=== PATIENT | male | born 1960 | race American Indian/Alaskan Native ===

== ENCOUNTER 2017-02-26 00:15 | Emergency (ER) | payer MEDICAID, OTHER ==
[2017-02-26 00:52] VITALS: BMI 36.2
--- NOTE | 2017-02-26 01:14 | ED PDOC ---
Arrival/HPI - General Chief Complaint: Headache Time Seen by Provider: 02/26/17 00:42 Historian: Patient - History of Present Illness Narrative History of Present Illness (Text): 02/26/17 01:13 A 57 year old male, whose past medical history includes hypertension, presents to the emergency department complaining of headache for the past three days. Notes headache was gradual and constant from front to back, radiating down to neck. Patient reports left jaw pain today that lasted for five minutes. Patient hasn't taken hypertension medications for the past week. Notes similar symptoms in the past when blood pressure was elevated. Reports paresthesia in bilateral fingers for the past week but denies any shortness of breath, chest pain or any other complaints at this time. Denies any drug or alcohol use. Medications: Losartan and Amlodipine Time/Duration: Other (3 days) Symptom Onset: Sudden Symptom Course: Unchanged Activities at Onset: Rest Context: Home Past Medical History - Provider Review Nursing Documentation Reviewed: Yes - Tetanus Immunization Tetanus Immunization: >10 years Ago - Cardiac Hx Cardiac Disorders: Yes Hx Hypertension: Yes - Pulmonary Hx Respiratory Disorders: No - Neurological Hx Neurological Disorder: No - HEENT Hx HEENT Disorder: No - Renal Hx Renal Disorder: No - Endocrine/Metabolic Hx Endocrine Disorders: No - Hematological/Oncological Hx Blood Disorders: No - Integumentary Hx Dermatological Disorder: No - Musculoskeletal/Rheumatological Hx Musculoskeletal Disorders: No - Gastrointestinal Hx Gastrointestinal Disorders: No - Genitourinary/Gynecological Hx Genitourinary Disorders: No - Psychiatric Hx Psychophysiologic Disorder: No Hx Substance Use: No - Past Surgical History Past Surgical History: No Previous - Anesthesia Hx Anesthesia: No - Suicidal Assessment Feels Threatened In Home Enviroment: No Family/Social History - Physician Review Nursing Documentation Reviewed: Yes Family/Social History: No Known Family HX Smoking Status: Never Smoked Hx Alcohol Use: No Hx Substance Use: No Hx Substance Use Treatment: No Allergies/Home Meds Allergies/Adverse Reactions: Allergies No Known Allergies Allergy (Verified 02/26/17 00:52) Home Medications: Home Meds Medication Instructions Recorded Confirmed Losartan [Cozaar] 1 tab PO DAILY 08/19/16 02/26/17 amLODIPine [Norvasc] 1 tab PO DAILY 08/19/16 02/26/17 Review of Systems - Physician Review All systems were reviewed & negative as marked: Yes - Review of Systems Respiratory: absent: SOB Cardiovascular: absent: Chest Pain Musculoskeletal: Neck Pain, Other (left jaw pain) Neurological: Headache Physical Exam Vital Signs Reviewed: Yes Vital Signs Temp Pulse Resp BP Pulse Ox 02/26/17 04:39 98.7 F 84 19 123/83 96 02/26/17 03:05 18 131/93 H 95 02/26/17 02:44 83 151/105 H 02/26/17 01:28 154/114 H 02/26/17 00:58 98.4 F 72 20 154/114 H 94 L Temperature: Afebrile Blood Pressure: Hypertensive Pulse: Regular Respiratory Rate: Normal Appearance: Positive for: Well-Appearing, Non-Toxic, Comfortable Pain Distress: None Mental Status: Positive for: Alert and Oriented X 3 - Systems Exam Head: Present: Atraumatic, Normocephalic Pupils: Present: PERRL Extroacular Muscles: Present: EOMI Conjunctiva: Present: Normal Mouth: Present: Moist Mucous Membranes Neck: Present: Normal Range of Motion Respiratory/Chest: Present: Clear to Auscultation, Good Air Exchange. No: Respiratory Distress, Accessory Muscle Use Cardiovascular: Present: Regular Rate and Rhythm, Normal S1, S2. No: Murmurs Abdomen: Present: Normal Bowel Sounds. No: Tenderness, Distention, Peritoneal Signs Back: Present: Normal Inspection Upper Extremity: Present: Normal Inspection. No: Cyanosis, Edema Lower Extremity: Present: Normal Inspection. No: Edema Neurological: Present: GCS=15, CN II-XII Intact, Speech Normal, Motor Func Grossly Intact, Normal Sensory Function, Normal Cerebellar Funct, Gait Normal, Other (no focal deficits) Skin: Present: Warm, Dry, Normal Color. No: Rashes Psychiatric: Present: Alert, Oriented x 3, Normal Insight, Normal Concentration Medical Decision Making ED Course and Treatment: 02/26/17 01:34 EKG: Ordered, reviewed, and independently interpreted the EKG. Rate : 62 BPM Rhythm : NSR Interpretation : Nonspecific T wave abnormality Comparison : No previous EKG for comparison. CT Head Without Intravenous Contrast FINDINGS: Brain: Mild atrophy. No intracranial hemorrhage. No mass. No definite edema. Ventricles: No hydrocephalus. Bones/joints: No acute fracture. Soft tissues: Unremarkable. Sinuses: LEFT maxillary retention cyst. Scattered minimal mucosal thickening. Mastoid air cells: No mastoid effusion. Orbits: Unremarkable as visualized. IMPRESSION: 1. No acute intracranial abnormality. 2. Incidental/non-acute findings are described above. Dictated and Authenticated by: Andrew Bland MD 02/26/2017 3:12 AM Eastern Time ([place] & [place]) 02/26/17 04:25 Patient is resting comfortably and is in no acute distress. Patient feels better. Blood pressure improved. I have discussed the results and plan with the patient, who expresses understanding. Patient in agreement with plan to be discharged home. Patient is stable for discharge. Patient was instructed to follow up with physician or return if symptoms worsen or new concerning symptoms arise. - Lab Interpretations Lab Results: 02/26/17 01:40 02/26/17 01:40 Lab Results 02/26/17 01:40: Sodium 139, Potassium 3.6, Chloride 100, Carbon Dioxide 30, Anion Gap 13, BUN 13, Creatinine 1.2, Est GFR ( Amer) > 60, Est GFR (Non- Af Amer) > 60, Random Glucose 180 H, Calcium 9.6, Total Bilirubin 0.5, AST 24, ALT 25, Alkaline Phosphatase 88, Troponin I < 0.01, Total Protein 6.9, Albumin 3.8, Globulin 3.1, Albumin/Globulin Ratio 1.2 02/26/17 01:40: WBC 6.5, RBC 4.35, Hgb 13.1 L, Hct 37.3 L, MCV 85.7, MCH 30.1, MCHC 35.1, RDW 12.9, Plt Count 231, MPV 10.4, Gran % 54.1, Lymph % (Auto) 34.5, [place] % (Auto) 7.9 H, Eos % (Auto) 3.2, Baso % (Auto) 0.3, Gran # 3.50, Lymph # 2.2, [place] # 0.5, Eos # 0.2, Baso # 0.02 I have reviewed the lab results: Yes - RAD Interpretation Radiology Orders: 02/26/17 01:10 HEAD W/O CONTRAST [CT] Stat - EKG Interpretation Interpreted by ED Physician: Yes Type: 12 lead EKG - Medication Orders Current Medication Orders: Discontinued Medications Acetaminophen (Tylenol 325mg Tab) 975 mg PO STAT STA Stop: 02/26/17 02:25 Last Admin: 02/26/17 02:43 Dose: 975 mg Amlodipine Besylate (Norvasc) 10 mg PO STAT STA Stop: 02/26/17 01:11 Last Admin: 02/26/17 01:28 Dose: 10 mg Diphenhydramine HCl (Benadryl) 25 mg IVP STAT STA Stop: 02/26/17 03:29 Last Admin: 02/26/17 03:47 Dose: Not Given Non-Admin Reason: Patient Refused Labetalol HCl (Trandate) 10 mg IVP STAT STA Stop: 02/26/17 02:25 Last Admin: 02/26/17 02:44 Dose: 10 mg Losartan Potassium (Cozaar) 100 mg PO STAT STA Stop: 02/26/17 01:14 Last Admin: 02/26/17 01:28 Dose: 100 mg Metoclopramide HCl (Reglan) 10 mg IVP STAT STA Stop: 02/26/17 03:29 Last Admin: 02/26/17 03:47 Dose: Not Given Non-Admin Reason: Patient Refused - Scribe Statement The provider has reviewed the documentation as recorded by the Jacinta Max Provider Scribe Attestation: All medical record entries made by the Justinibmoreno were at my direction and personally dictated by me. I have reviewed the chart and agree that the record accurately reflects my personal performance of the history, physical exam, medical decision making, and the department course for this patient. I have also personally directed, reviewed, and agree with the discharge instructions and disposition. Disposition/Present on Arrival - Present on Arrival Any Indicators Present on Arrival: No History of DVT/PE: No History of Uncontrolled Diabetes: No Urinary Catheter: No History of Decub. Ulcer: No History Surgical Site Infection Following: None - Disposition Have Diagnosis and Disposition been Completed?: Yes Diagnosis: High blood pressure Disposition: HOME/ ROUTINE Disposition Time: 04:27 Condition: IMPROVED Discharge Instructions (ExitCare): Chronic Hypertension (ED) Additional Instructions: Please follow up with your doctor in the next week. Return to the ER for any worsening symptoms or for any other concerns. Prescriptions: amLODIPine [Norvasc] 10 mg PO DAILY #30 tab Losartan [Cozaar] 100 mg PO DAILY #30 tab Forms: [employer] (French)
[2017-02-26 01:58] LABS: ALB/GLOB RATIO 1.2 (1.1-1.8); ALBUMIN 3.8 g/dL (3.0-4.8); ALT/SGPT 25 U/L (7-56); AST/SGOT 24 U/L (15-59); BLOOD UREA NITROGEN 13 mg/dL (7-21); CALCIUM 9.6 mg/dL (8.4-10.5); GFR AFRICAN-AMERICAN > 60; GFR NON-AFRICAN AMERICAN > 60
[2017-02-26 02:10] LABS: TROPONIN I < 0.01 ng/mL
[2017-02-26] MEDS ORDERED: Labetalol 5 mg/ml Inj 20ML IVP STA ×2 (02:24→02:56)
[2017-02-26 02:28] LABS: BASO # 0.02 K/mm3 (0.0-2.0); BASO % 0.3 % (0.0-3.0); EOS # 0.2 (0.0-0.7); EOS % 3.2 % (1.5-5.0); GRAN % 54.1 % (50.0-68.0); HEMOGLOBIN 13.1 gm/dL (14.0-18.0); LYMPH # 2.2 (1.2-3.4); LYMPH % 34.5 % (22.0-35.0); MEAN CELL VOLUME 85.7 fL (80.0-105.0); MEAN CORPUSCULAR HEMOGLOBIN 30.1 pg (25.0-35.0); MEAN CORPUSCULAR HGB CONC 35.1 g/dl (31.0-37.0); MEAN PLATELET VOLUME 10.4 fl (7.0-11.0); MONO # 0.5 (0.1-0.6); MONO % 7.9 % (1.0-6.0); PLATELET COUNT 231 10^3/uL (120.0-450.0); RBC 4.35 10^6/uL (3.5-6.1); RED CELL DISTRIBUTION WIDTH 12.9 % (11.5-14.5); WHITE BLOOD COUNT 6.5 10^3/ul (4.5-11.0)
--- NOTE | 2017-02-26 03:12 | CT ---
EXAM: CT Head Without Intravenous Contrast CLINICAL HISTORY: 57 years old, male; Pain; Headache TECHNIQUE: Axial computed tomography images of the head/brain without intravenous contrast. This CT exam was performed using one or more of the following dose reduction techniques: automated exposure control, adjustment of the mA and/or kV according to patient size, and/or use of iterative reconstruction technique. COMPARISON: No relevant prior studies available. FINDINGS: Brain: Mild atrophy. No intracranial hemorrhage. No mass. No definite edema. Ventricles: No hydrocephalus. Bones/joints: No acute fracture. Soft tissues: Unremarkable. Sinuses: LEFT maxillary retention cyst. Scattered minimal mucosal thickening. Mastoid air cells: No mastoid effusion. Orbits: Unremarkable as visualized. IMPRESSION: 1. No acute intracranial abnormality. 2. Incidental/non-acute findings are described above.
[2017-02-26] MEDS ORDERED: DiphenhydrAMINE 50 mg/ml Inj IVP STA (03:28)
[2017-02-26 04:39] VITALS: BP 123/83; PULSE 84; RESP 19; TEMP 98.7; O2SAT 96
--- NOTE | 2017-02-26 11:08 | CARD ---
APPROVED REPORT EKG Measurement Heart [id number] <Conclusion> Normal sinus rhythm Nonspecific T wave abnormality Abnormal ECG
== END 2017-02-26 04:47 | disposition home or self-care (01) ==
LOC: ED 00:15
DX: I10 Essential (primary) hypertension (principal)

== ENCOUNTER 2018-05-06 03:37 | Emergency (ER) | payer MEDICAID, OTHER ==
[2018-05-06 03:57] VITALS: BMI 33.0
[2018-05-06 03:59] VITALS: O2SAT 100
[2018-05-06] MEDS ORDERED: Sodium Chloride 0.9% 1,000 ML IV STA (04:04)
--- NOTE | 2018-05-06 04:09 | ED PDOC ---
Arrival/HPI - General Chief Complaint: Male Genitourinary Time Seen by Provider: 05/06/18 03:40 Historian: Patient - History of Present Illness Narrative History of Present Illness (Text): 05/06/18 04:04 58 year old male, whose past medical history includes hypertension and kidney stones, presents to the emergency department complaining of right flank pain that radiates down to the scrotum. Patient reports the pain is a constant pain with a throbbing sensation. Patient reports nausea, but denies any fever, chills, chest pain, shortness of breath, vomiting, diarrhea, urinary symptoms, neck pain, headache, dizziness, or any other complaints. Symptom Course: Unchanged Quality: Throbbing Activities at Onset: Light Context: Home Past Medical History - Provider Review Nursing Documentation Reviewed: Yes - Tetanus Immunization Tetanus Immunization: >10 years Ago - Cardiac Hx Cardiac Disorders: Yes Hx Hypertension: Yes - Pulmonary Hx Respiratory Disorders: No - Neurological Hx Neurological Disorder: No - HEENT Hx HEENT Disorder: No - Renal Hx Renal Disorder: No - Endocrine/Metabolic Hx Endocrine Disorders: No - Hematological/Oncological Hx Blood Disorders: No - Integumentary Hx Dermatological Disorder: No - Musculoskeletal/Rheumatological Hx Musculoskeletal Disorders: No - Gastrointestinal Hx Gastrointestinal Disorders: No - Genitourinary/Gynecological Hx Genitourinary Disorders: No - Psychiatric Hx Psychophysiologic Disorder: No Hx Substance Use: No - Past Surgical History Past Surgical History: No Previous - Anesthesia Hx Anesthesia: No - Suicidal Assessment Feels Threatened In Home Enviroment: No Family/Social History - Physician Review Nursing Documentation Reviewed: Yes Family/Social History: No Known Family HX Smoking Status: Never Smoked Hx Alcohol Use: Yes Frequency of alcohol use: Socially Hx Substance Use: No Hx Substance Use Treatment: No Allergies/Home Meds Allergies/Adverse Reactions: Allergies No Known Allergies Allergy (Verified 02/26/17 00:52) Review of Systems - Physician Review All systems were reviewed & negative as marked: Yes - Review of Systems Constitutional: absent: Fevers, Other (Chills) Respiratory: absent: SOB Cardiovascular: absent: Chest Pain Gastrointestinal: Nausea. absent: Diarrhea, Vomiting Musculoskeletal: Back Pain (right flank pain). absent: Neck Pain Neurological: absent: Headache, Dizziness Physical Exam Vital Signs Reviewed: Yes Vital Signs Temp Pulse Resp BP Pulse Ox 05/06/18 03:57 99.2 F 69 17 160/98 H 100 Temperature: Afebrile Blood Pressure: Hypertensive Pulse: Regular Respiratory Rate: Normal Appearance: Positive for: Well-Appearing, Non-Toxic, Comfortable Pain Distress: None Mental Status: Positive for: Alert and Oriented X 3 - Systems Exam Head: Present: Atraumatic, Normocephalic Pupils: Present: PERRL Extroacular Muscles: Present: EOMI Conjunctiva: Present: Normal Mouth: Present: Moist Mucous Membranes Neck: Present: Normal Range of Motion Respiratory/Chest: Present: Clear to Auscultation, Good Air Exchange. No: Respiratory Distress, Accessory Muscle Use Cardiovascular: Present: Regular Rate and Rhythm, Normal S1, S2. No: Murmurs Abdomen: Present: Tenderness (right sided flank pain). No: Distention, Peritoneal Signs Genitourinary Male: Present: Testicle Tenderness Back: Present: Normal Inspection Upper Extremity: Present: Normal Inspection. No: Cyanosis, Edema Lower Extremity: Present: Normal Inspection. No: Edema Neurological: Present: GCS=15, CN II-XII Intact, Speech Normal Skin: Present: Warm, Dry, Normal Color. No: Rashes Psychiatric: Present: Alert, Oriented x 3, Normal Insight, Normal Concentration Medical Decision Making ED Course and Treatment: 05/06/18 04:04 Impression: 58 year old male presents complaining of right flank pain that radiates to the scrotum. ro rental colic pyelo torsion Plan: -- CT Abd & Pelvis -- Labs -- IV Fluids, Toradol, Zofran Inj -- US Testes Duplex Complete -- Urinalysis -- Reassess and disposition Prior Visits: Notes and results from previous visits were reviewed. Progress Notes: EXAM: US Scrotum. Electronically signed on May 06, 2018 5:45:49 AM EDT by: Jamal Sauceda M.D., MPRESSION: Two left testicular cysts are noted measuring 4 and 3 mm. No acute abnormality evident on sonographic examination of the scrotum. 05/06/18 06:[address] neg for acute pathology. notified of cysts. no e/o of torsion pain improved. advise outpt fu. - Lab Interpretations I have reviewed the lab results: Yes - Scribe Statement The provider has reviewed the documentation as recorded by the Jacinta Barnett Provider Scribe Attestation: All medical record entries made by the Scribe were at my direction and personally dictated by me. I have reviewed the chart and agree that the record accurately reflects my personal performance of the history, physical exam, medical decision making, and the department course for this patient. I have also personally directed, reviewed, and agree with the discharge instructions and disposition. Disposition/Present on Arrival - Present on Arrival Any Indicators Present on Arrival: No History of DVT/PE: No History of Uncontrolled Diabetes: No Urinary Catheter: No History of Decub. Ulcer: No History Surgical Site Infection Following: None - Disposition Have Diagnosis and Disposition been Completed?: Yes Diagnosis: Flank pain, Testicular pain, Kidney cysts Disposition: HOME/ ROUTINE Disposition Time: 06:30 Condition: STABLE Discharge Instructions (ExitCare): Low Back Pain in Adults Additional Instructions: please follow up with your doctor and specialists please discuss all you results with your doctor and specialists. return to any er with worsening symptoms or concerns. Prescriptions: RX: Naproxen 500 mg PO BID PRN #20 tablet PRN Reason: Pain, Mild (1-3) Referrals: [facility] [Outside] - Follow up with primary [facility] [place]] - Follow up with primary Nelson Harris MD [Staff Provider] - Follow up with primary Kennedy Schmidt MD [Staff Provider] - Follow up with primary Forms: [employer] (Panamanian)
[2018-05-06 04:33] LABS: BASO # 0.01 K/mm3 (0.0-2.0); BASO % 0.1 % (0.0-3.0); EOS # 0.2 (0.0-0.7); EOS % 1.7 % (1.5-5.0); GRAN # 6.2 (1.4-6.5); GRAN % 68.4 % (50.0-68.0); HEMOGLOBIN 13.9 g/dL (14.0-18.0); LYMPH % 22.3 % (22.0-35.0); MEAN CELL VOLUME 85.7 fl (80.0-105.0); MEAN CORPUSCULAR HEMOGLOBIN 30.2 pg (25.0-35.0); MEAN CORPUSCULAR HGB CONC 35.2 g/dl (31.0-37.0); MEAN PLATELET VOLUME 10.3 fl (7.0-11.0); MONO # 0.7 (0.1-0.6); MONO % 7.5 % (1.0-6.0); RBC 4.61 10^6/uL (3.5-6.1); RED CELL DISTRIBUTION WIDTH 13.1 % (11.5-14.5); WHITE BLOOD COUNT 9.1 10^3/ul (4.5-11.0)
[2018-05-06 04:38] LABS: INR 0.88; PARTIAL THROMBOPLASTIN TIME 29.1 Seconds (25.1-36.5)
[2018-05-06 04:43] LABS: ALB/GLOB RATIO 1.3 (1.1-1.8); ALBUMIN 4.3 g/dL (3.0-4.8); ALT/SGPT 21 U/L (7-56); AST/SGOT 21 U/L (17-59); BLOOD UREA NITROGEN 14 mg/dL (7-21); CALCIUM 9.6 mg/dL (8.4-10.5); GFR NON-AFRICAN AMERICAN > 60; LIPASE 37 U/L (23-300)
[2018-05-06 04:57] LABS: URINE BILIRUBIN NEGATIVE (NEGATIVE); URINE BLOOD NEGATIVE (NEGATIVE); URINE GLUCOSE (UA) 250 mg/dL (NEGATIVE); URINE LEUKOCYTE ESTERASE NEGATIVE Leu/uL (NEGATIVE); URINE PROTEIN TRACE mg/dL (<30 mg/dL); URINE UROBILINOGEN 0.2 E.U./dL (<1 E.U./dL)
[2018-05-06 05:03] LABS: URINE APPEARANCE SL CLOUDY (CLEAR); URINE COLOR LIGHT YELLOW (YELLOW)
[2018-05-06 05:17] LABS: URINE RBC 0 - 2 /hpf (0-2)
[2018-05-06 05:18] LABS: URINE BACTERIA MANY (NEG); URINE WBC NEGATIVE /hpf (0-6)
[2018-05-06 06:40] VITALS: BP 137/82; PULSE 65; RESP 16; TEMP 98.5
--- NOTE | 2018-05-06 10:55 | CT ---
Date of service: 05/06/2018 PROCEDURE: CT Abdomen and Pelvis without intravenous contrast HISTORY: right sided flank pain COMPARISON: 10/31/2014 TECHNIQUE: Without contrast.. Contrast dose: 0 Radiation dose: Total exam DLP = 1098.39 mGy-cm. This CT exam was performed using one or more of the following dose reduction techniques: Automated exposure control, adjustment of the mA and/or kV according to patient size, and/or use of iterative reconstruction technique. FINDINGS: LOWER THORAX: Mild cardiomegaly. No infiltrate/effusion. Calcified lymph nodes in the posterior inferior mediastinum, likely subcarinal/paraesophageal. This may be seen in association with old tuberculosis or treated lymphoma. This is not definitely evident on prior examination. LIVER: Normal size, contour and attenuation. Nonspecific 11 mm low-attenuation lesion in the most anterior subcapsular medial left hepatic lobe. Likely present on prior examination no biliary dilatation. Calcified granuloma in the inferior right hepatic lobe incidentally noted. GALLBLADDER AND BILE DUCTS: Unremarkable. PANCREAS: Unremarkable. No gross lesion or ductal dilatation. SPLEEN: Calcified splenic granulomas. No mass. Normal size. ADRENALS: Unremarkable. No mass. KIDNEYS AND URETERS: Large right upper pole renal cortical cyst, 10.0 cm greatest dimension. Previously, on 10/31/2014, this measured approximately 8.6 cm in greatest dimension. This measures 2 Hounsfield units in attenuation, consistent with cyst. 3.0 cm low-density mass upper pole right kidney, increased in size from prior examination, at which time this measured 1.9 cm. This measures -2 Hounsfield units, consistent with cyst. No other mass. No calculus or hydronephrosis. VASCULATURE: Unremarkable. No aortic aneurysm. BOWEL: Unremarkable. No obstruction. No gross mural thickening. APPENDIX: Unremarkable. Normal appendix. PERITONEUM: Unremarkable. No free fluid. No free air. LYMPH NODES: Unremarkable. No enlarged lymph nodes. BLADDER: Unremarkable. REPRODUCTIVE: Normal prostate BONES: No acute fracture. OTHER FINDINGS: None. IMPRESSION: Two enlarging right upper pole renal cysts. No renal calculus or hydronephrosis. Mild cardiomegaly. Calcified mediastinal lymph nodes. Calcified splenic granulomata. Calcified hepatic granuloma. No additional abnormality. The preliminary findings for this examination were reported by [facility] at 6:14 a.m. on 05/06/2015. There is concurrence of this report with the preliminary findings.
--- NOTE | 2018-05-06 13:18 | US ---
Date of service: 05/06/2018 HISTORY: right sided pain TECHNIQUE: Realtime sonography through the scrotum with color and doppler flow. COMPARISON: None Available. FINDINGS: RIGHT TESTICLE: Measures 4.2 x 1.9 x 2.5 cm. Homogeneous echotexture. No mass. Normal flow. RIGHT EPIDIDYMIS: Normal size, morphology and vascularity. LEFT TESTICLE: Measures 4.8 x 2.2 x 2.7 cm. Homogeneous echotexture. Two small incidental testicular cysts are noted, 3 x 4 x 4 mm and 2 x 3 x 3 mm. No solid mass. Normal flow demonstrated. LEFT EPIDIDYMIS: Normal size, morphology and vascularity. Incidental epididymal cyst, 11 mm. HYDROCELE: Trace left hydrocele.. VARICOCELE: None. OTHER FINDINGS: None. IMPRESSION: No evidence of testicular torsion or epididymo-orchitis. Two small incidental left testicular cysts and small incidental left epididymal cyst. Trace left hydrocele. The preliminary findings for this examination were reported by [facility] at 5:45 a.m. on 05/06/2018. There is concurrence of this report with the preliminary findings.
== END 2018-05-06 06:40 | disposition home or self-care (01) ==
LOC: ED 03:37
DX: N28.1 Cyst of kidney, acquired (principal); N50.819 Testicular pain, unspecified; R10.9 Unspecified abdominal pain; I10 Essential (primary) hypertension
CPT/HCPCS: 74176; 80053; 81001; 83690; 83735; 85025; 85610; 85730; 93975; 96361; 96374; 96375; 99284; J1885; J2405; J7030

== ENCOUNTER 2018-08-08 23:22 | Emergency (ER) | payer MEDICAID ==
[2018-08-08 23:22] VITALS: BMI 33.0
[2018-08-09] MEDS ORDERED: Amoxicillin-Clav 875-125 mg Tab PO STA (00:31)
--- NOTE | 2018-08-09 01:03 | ED PDOC ---
Arrival/HPI - General Chief Complaint: ENT Problem Time Seen by Provider: 08/08/18 23:30 Historian: Patient - History of Present Illness Narrative History of Present Illness (Text): 08/09/18 01:00 58 y/o male with PMH of HTN presents to ED c/o left sided facial pain x 1 day. Starting this morning, patient had gradual onset of worsening pain located under the left mandibular angle. Has not experienced pain like this before. No trauma. Took tylenol this morning for pain with minimal relief. Denies fevers, chills, hearing changes, tinnitus, headache, dizziness, sore throat, vision changes, neck pain, abdominal pain, N/V, or any other associated symptoms. Past Medical History - Provider Review Nursing Documentation Reviewed: Yes - Infectious Disease Hx of Infectious Diseases: None - Tetanus Immunization Tetanus Immunization: >10 years Ago - Cardiac Hx Cardiac Disorders: Yes Hx Hypertension: Yes - Pulmonary Hx Respiratory Disorders: No - Neurological Hx Neurological Disorder: No - HEENT Hx HEENT Disorder: No - Renal Hx Renal Disorder: No - Endocrine/Metabolic Hx Endocrine Disorders: No - Hematological/Oncological Hx Blood Disorders: No - Integumentary Hx Dermatological Disorder: No - Musculoskeletal/Rheumatological Hx Musculoskeletal Disorders: No - Gastrointestinal Hx Gastrointestinal Disorders: No - Genitourinary/Gynecological Hx Genitourinary Disorders: No - Psychiatric Hx Psychophysiologic Disorder: No Hx Substance Use: No - Past Surgical History Past Surgical History: No Previous - Anesthesia Hx Anesthesia: No - Suicidal Assessment Feels Threatened In Home Enviroment: No Family/Social History - Physician Review Nursing Documentation Reviewed: Yes Family/Social History: No Known Family HX Smoking Status: Never Smoked Hx Alcohol Use: Yes Hx Substance Use: No Hx Substance Use Treatment: No Allergies/Home Meds Allergies/Adverse Reactions: Allergies No Known Allergies Allergy (Verified 08/08/18 23:29) Review of Systems - Physician Review All systems were reviewed & negative as marked: Yes - Review of Systems Constitutional: Normal. absent: Fevers Eyes: Normal. absent: Vision Changes ENT: Other (left sided lymphadenopathy). absent: Hearing Changes, Sore Throat, Sinus Congestion Respiratory: Normal. absent: SOB Cardiovascular: Normal. absent: Chest Pain, Palpitations Gastrointestinal: Normal. absent: Abdominal Pain, Nausea, Vomiting Genitourinary Male: Normal Musculoskeletal: Normal. absent: Arthralgias, Back Pain, Neck Pain Skin: Normal. absent: Rash Neurological: Normal. absent: Headache, Dizziness Endocrine: Normal Hemo/Lymphatic: Normal Psychiatric: Normal Physical Exam Vital Signs Reviewed: Yes Vital Signs Temp Pulse Resp BP Pulse Ox 08/08/18 23:26 97.6 F 65 16 150/94 H 94 L Temperature: Afebrile Blood Pressure: Hypertensive Pulse: Regular Respiratory Rate: Normal Appearance: Positive for: Well-Appearing, Non-Toxic, Comfortable Pain Distress: None Mental Status: Positive for: Alert and Oriented X 3 - Systems Exam Head: Present: Atraumatic, Normocephalic Pupils: Present: PERRL Extroacular Muscles: Present: EOMI Conjunctiva: Present: Normal Ears: Present: Erythema (left TM dull and erythematous) Mouth: Present: Moist Mucous Membranes Pharnyx: Present: Normal. No: ERYTHEMA, EXUDATE, TONSILS ENLARGED Nose (External): Present: Atraumatic Nose (Internal): Present: Normal Inspection Neck: Present: Normal Range of Motion, Lymphadenopathy (left submandibular tender and mildly swollen). No: Meningeal Signs, MIDLINE TENDERNESS, Paraspinal Tenderness Respiratory/Chest: Present: Clear to Auscultation, Good Air Exchange. No: Respiratory Distress, Accessory Muscle Use Cardiovascular: Present: Regular Rate and Rhythm, Normal S1, S2. No: Murmurs Abdomen: Present: Normal Bowel Sounds. No: Tenderness, Distention, Peritoneal Signs, Rebound, Guarding Back: Present: Normal Inspection. No: CVA Tenderness, Midline Tenderness, Paraspinal Tenderness Upper Extremity: Present: Normal Inspection, Normal ROM, NORMAL PULSES, Neurovascularly Intact, Capillary Refill < 2s. No: Cyanosis, Edema Lower Extremity: Present: Normal ROM, Neurovascularly Intact Neurological: Present: GCS=15, CN II-XII Intact, Speech Normal, Motor Func Grossly Intact, Normal Sensory Function, Gait Normal Skin: Present: Warm, Dry, Normal Color. No: Rashes Lymphatic: Present: Cervical Adenopathy (left submandibular tender and mildly swollen) Psychiatric: Present: Alert, Oriented x 3, Normal Insight, Normal Concentration, Normal Affect, Normal Mood Medical Decision Making ED Course and Treatment: 08/09/18 01:04 Initial Plan: * Augmentin * Ibuprofen Patient examined at bedside by ED attending Dr. Frazier, who agrees with plan of care and disposition. Diagnostic testing results and plan of care discussed with patient. Strict instr uctions given regarding prescription use, importance of followup, and signs/symptoms to return to ER including fever, chills, mastoid tenderness, headache, neck pain, hearing loss, or any other new/worsening symptoms. Pt verbalized understanding of discussion. Patient is A&Ox3, ambulating with steady gait, with vital signs stable for discharge. - Medication Orders Current Medication Orders: Discontinued Medications Amoxicillin/Clavulanate Potassium (Augmentin 875 Mg-125 Mg Tab) 1 tab PO STAT STA; Protocol Stop: 08/09/18 00:32 Last Admin: 08/09/18 00:45 Dose: 1 tab Ibuprofen (Motrin Tab) 600 mg PO STAT STA Stop: 08/09/18 00:33 Last Admin: 08/09/18 00:50 Dose: 600 mg MAR Pain/Vitals Document 08/09/18 00:50 RG (Rec: 08/09/18 00:56 RG [id number]) Pain Reassessment Is This A Pain ReAssessment? Yes Presence of Pain Presence of Pain Yes Location Left, Right or Bilateral Left Pain Location Body Site Ear Description Intermittent Intensity 5 Scale Used Numeric Disposition/Present on Arrival - Present on Arrival Any Indicators Present on Arrival: No History of DVT/PE: No History of Uncontrolled Diabetes: No Urinary Catheter: No History of Decub. Ulcer: No History Surgical Site Infection Following: None - Disposition Have Diagnosis and Disposition been Completed?: Yes Diagnosis: Otitis media Disposition: HOME/ ROUTINE Disposition Time: 01:00 Patient Plan: Discharge Condition: IMPROVED Discharge Instructions (ExitCare): Ear Infections (Otitis Media) Additional Instructions: Augmentin every 12 hours for 7 days Followup with ENT within 2 days Followup with primary doctor within 2 days Return to ER with any new/worsening symptoms Prescriptions: Amoxicillin/Clavulanate [Augmentin 875 MG-125 MG] 1 tab PO Q12H #14 tab Naproxen [Naprosyn] 500 mg PO DAILY PRN #14 tablet PRN Reason: Pain, Moderate (4-7) Referrals: [facility] [place] - Follow up with primary Dipesh Lake DO [Staff Provider] - Follow up with primary Latonya Fuentes MD [Medical Doctor] - Follow up with primary Forms: [employer] ([place]), WORK NOTE
[2018-08-09 01:13] VITALS: BP 136/84; PULSE 68; RESP 18; TEMP 97.9; O2SAT 95
== END 2018-08-09 01:00 | disposition home or self-care (01) ==
LOC: ED 23:22
DX: H66.90 Otitis media, unspecified, unspecified ear (principal)